=== PATIENT | female | born 1975 | race Caucasian/White ===

== ENCOUNTER 2018-01-07 22:48 | Emergency (ER) | payer OTHER, MEDICAID ==
[~2018-01-07] VITALS: Ht 160 cm; Wt 54.9 kg
[2018-01-07] MEDS ORDERED: TOPROL XL100 MG (23:04)
[2018-01-07] MEDS ORDERED: ALDACTONE50 MG (23:05)
[2018-01-07] MEDS ORDERED: SYNTHROID175 MCG (23:05)
[2018-01-07] MEDS ORDERED: ZANAFLEX4 MG (23:06)
[2018-01-07 23:43] LABS: URINE BLOOD NEGATIVE (Negative); URINE CLARITY CLEAR; URINE COLOR DARK YELLOW; URINE GLUCOSE-RANDOM NEGATIVE (Negative); URINE KETONES 2+ (Negative); URINE LEUKOCYTES-REFLEX TRACE (Negative); URINE PROTEIN 2+ (Negative); URINE SPECIFIC GRAVITY >= 1.030 (1.005-1.030)
[2018-01-07 23:44] LABS: URINE BILIRUBIN 2+ (Negative); URINE NITRITE-REFLEX POSITIVE (Negative)
[2018-01-07 23:46] LABS: ICTOTEST (BILI CONFIRMATORY) Positive (Negative)
[2018-01-07 23:52] LABS: ABSOLUTE BASOPHILS 0.1 thou/uL (0.0-0.2); ABSOLUTE LYMPHOCYTES 1.2 thou/uL (0.8-5.3); BASOPHILS 0.7 %; HEMATOCRIT 38.2 % (37.0-47.0); HEMOGLOBIN 12.9 gm/dL (12.0-15.0); LYMPHOCYTES 13.3 %; MCH 33.4 pg (26.0-34.0); MCHC 33.8 g/dL (28.0-37.0); MCV 98.8 fL (80.0-100.0); MONOCYTES 10.6 %; MPV 8.8 fl. (7.2-11.1); NUCLEATED RBCS 0 /100WBC; PLATELET COUNT* 172 thou/uL (150-400); POLYS 75.4 %; RBC 3.87 mil/uL (4.20-5.00); RDW-CV 14.3 % (10.5-14.5); WBC 9.3 thou/uL (4.0-11.0)
[2018-01-07 23:58] LABS: ANION GAP 12 mmol/L (7-16); BUN 15 mg/dL (7-18); CALCIUM 8.9 mg/dL (8.5-10.1); CHLORIDE 94 mmol/L (98-107); CO2 25 mmol/L (21-32); CREATININE 0.9 mg/dL (0.6-1.3); GLUCOSE 99 mg/dL (70-99); POTASSIUM 5.1 mmol/L (3.5-5.1); SODIUM 131 mmol/L (136-145)
[2018-01-08 00:04] LABS: ALBUMIN 3.8 g/dL (3.4-5.0); ALKALINE PHOSPHATASE 59 U/L (46-116); LIPASE 588 U/L (73-393); SGOT 34 U/L (15-37); SGPT 17 U/L (30-65); TOTAL BILIRUBIN 0.9 mg/dL (<0.1-1.0); TOTAL PROTEIN 8.4 g/dL (6.4-8.2); TROPONIN-I LEVEL <0.06 ng/mL (<0.06)
[2018-01-08 00:09] LABS: HYALINE CASTS 0-3 Few /LPF (None Seen); MUCUS >6 Heavy strn/LPF (None Seen); SQUAMOUS 4-10 Moderate /LPF (0-3)
[2018-01-08 00:10] LABS: CRYSTALS None Seen /LPF (None Seen); URINE RBC None Seen /HPF (0-2); URINE WBC-REFLEX 6-15 Few /HPF (0-5)
[2018-01-08] MEDS ORDERED: MACROBID 100 M100 M1 PO (05:32)
[2018-01-08] MEDS ORDERED: ZOFRAN ODT4 MG PO (05:32)
[2018-01-08] MEDS ORDERED: PERCOCET 7.5-31 EACH PO (05:32)
[2018-01-08 05:44] VITALS: BP 116/77
== END 2018-01-08 05:44 | disposition home or self-care (01) ==
LOC: M.ERS 22:48
PROVIDERS: Physician Assistant
DX: N39.0 Urinary tract infection, site not specified (principal); R19.07 Generalized intra-abdominal and pelvic swelling, mass and lump; F17.210 Nicotine dependence, cigarettes, uncomplicated; Z88.8 Allergy status to other drugs, medicaments and biological substances